=== PATIENT | female | born 1990 | race African-American/Black ===

== ENCOUNTER 2018-09-20 14:03 | Emergency (ER) | payer BC ==
[~2018-09-20] VITALS: Ht 162.6 cm; Wt 77.1 kg
[2018-09-20] MEDS ORDERED: HYDROcodone/APAP 5/325MG 1 TAB TABLET PO ONE (15:15)
--- NOTE | 2018-09-20 15:41 | RAD ---
CT HEAD WO CONTRAST History: Trauma to the head, hematoma of the forehead Comparison: None. Technique: Noncontrast CT imaging was performed of the head. Exposure: One or more of the following individualized dose reduction techniques were utilized for this examination: 1. Automated exposure control 2. Adjustment of the mA and/or kV according to patient size 3. Use of iterative reconstruction technique. Findings: No acute extra-axial or parenchymal hemorrhage is identified. There is no significant intra-axial mass effect, midline shift, or extra-axial fluid collection. The yang-white differentiation of the major vascular territories is preserved. The ventricles, sulci, and cisterns are within normal limits in size and configuration. The mastoid air cells and the visualized paranasal sinuses are aerated. No acute calvarial abnormality is identified. There is frontal scalp hematoma, no underlying fracture. Impression: 1. No acute intracranial abnormality is identified. 2. There is frontal scalp hematoma, no underlying fracture. Electronically signed by: Federico Vu MD (09/20/2018 3:38 PM) [facility]
--- NOTE | 2018-09-20 16:00 | PHYS DOC ---
Past Medical History Past Medical History: Hypertension Past Surgical History: Other Additional Past Surgical Histo: RT KNEE Additional Information: non smoker. Alcohol Use: None Drug Use: None Adult General Chief Complaint Chief Complaint: HEAD INJURY/TRAUMA HPI HPI Patient is a 28 year old female who presents after a fall. Patient has hematoma to forehead. Denies LOC, n/v, or dizziness. When she fell she hit a wooden box after tripping. Rates pain 9/10 and throbbing headache that is the worst of her life. Event happened at 10:30 this morning and headache has continued. Review of Systems Review of Systems Constitutional: Denies fever or chills [] Eyes: Denies change in visual acuity, redness, or eye pain [] HENT: Denies nasal congestion or sore throat [] Respiratory: Denies cough or shortness of breath [] Cardiovascular: No additional information not addressed in HPI [] GI: Denies abdominal pain, nausea, vomiting, bloody stools or diarrhea [] : Denies dysuria or hematuria [] Musculoskeletal: Denies back pain or joint pain [] Integument: Denies rash or skin lesions. Reports hematoma on head. Neurologic: Reports headache, denies focal weakness or sensory changes [] Endocrine: Denies polyuria or polydipsia [] Complete systems were reviewed and found to be within normal limits, except as documented in this note. Current Medications Current Medications Current Medications Medications (Trade) Dose Ordered Sig/Rhiannon Start Time Stop Time Status Last Admin Dose Admin Acetaminophen/ Hydrocodone Bitart (Lortab 5/325) 1 tab 1X ONCE 09/20/18 15:15 09/20/18 15:16 DC 09/20/18 15:11 1 TAB Allergies Allergies Allergies Coded Allergies Type Severity Reaction Last Updated Verified No Known Drug Allergies 03/23/15 No Physical Exam Physical Exam Constitutional: Well developed, well nourished, no acute distress, non-toxic appearance. [] HENT: Normocephalic, atraumatic, bilateral external ears normal, oropharynx moist, no oral exudates, nose normal. [] Eyes: PERRLA, EOMI, conjunctiva normal, no discharge. [] Neck: Normal range of motion, no tenderness, supple, no stridor. [] Cardiovascular:Heart rate regular rhythm, no murmur [] Lungs & Thorax: Bilateral breath sounds clear to auscultation [] Abdomen: Bowel sounds normal, soft, no tenderness, no masses, no pulsatile masses. [] Skin: Warm, dry, no erythema, no rash. Hematoma to forehead. Back: No tenderness, no CVA tenderness. [] Extremities: No tenderness, no cyanosis, no clubbing, ROM intact, no edema. [] Neurologic: Alert and oriented X 3, normal motor function, normal sensory function, no focal deficits noted. [] Psychologic: Affect normal, judgement normal, mood normal. [] Current Patient Data Vital Signs Vital Signs Date Time Temp Pulse Resp B/P (MAP) Pulse Ox O2 Delivery O2 Flow Rate FiO2 09/20/18 16:07 16 149/92 (111) Room Air 09/20/18 15:12 110 100 09/20/18 14:10 98.7 98.7 Lab Values Laboratory Tests Test 09/20/18 14:28 POC Urine HCG, Qualitative Hcg negative (Negative) EKG EKG [] Radiology/Procedures Radiology/Procedures []PATIENT: KARL VALENTINACCOUNT: [id number]#: [id number] : 1990 LOCATION: ER AGE: 28 SEX: F EXAM STATUS: REG ER ORD. PHYSICIAN: JAI CAMARILLO APRN REASON: trauma to head PROCEDURE: CT HEAD WO CONTRAST CT HEAD WO CONTRAST History: Trauma to the head, hematoma of the forehead Comparison: None. Technique: Noncontrast CT imaging was performed of the head. Exposure: One or more of the following individualized dose reduction techniques were utilized for this examination: 1. Automated exposure control 2. Adjustment of the mA and/or kV according to patient size 3. Use of iterative reconstruction technique. Findings: No acute extra-axial or parenchymal hemorrhage is identified. There is no significant intra-axial mass effect, midline shift, or extra-axial fluid collection. The yang-white differentiation of the major vascular territories is preserved. The ventricles, sulci, and cisterns are within normal limits in size and configuration. The mastoid air cells and the visualized paranasal sinuses are aerated. No acute calvarial abnormality is identified. There is frontal scalp hematoma, no underlying fracture. Impression: 1. No acute intracranial abnormality is identified. 2. There is frontal scalp hematoma, no underlying fracture. Electronically signed by: Federico Vu MD (09/20/2018 3:38 PM) [facility] Course & Med Decision Making Course & Med Decision Making Pertinent Labs and Imaging studies reviewed. (See chart for details) Discussed event with patient. Will order CT scan and pain medication. Patient is agreeable. Will also have her ice. Discussed results. CT scan is negative. Will send home. Patient is agreeable. Dragon Disclaimer Dragon Disclaimer This electronic medical record was generated, in whole or in part, using a voice recognition dictation system. Departure Departure Impression: Primary Impression: Head injury due to trauma Disposition: HOME, SELF-CARE Condition: STABLE Referrals: NON,STAFF (PCP) Patient Instructions: Head Injury, Adult, [id number] Additional Instructions: Use ice intermittently 20 minutes on, 20 minutes off. For pain management use Ibroprofen per label instructions. If symptoms worsen come back to ER or follow up with PCP. Problem Qualifiers Primary Impression: Head injury due to trauma Encounter type: initial encounter Qualified Codes: S09.90XA - Unspecified injury of head, initial encounter JAI CAMARILLO APRN September 20, 2018 16:00
[2018-09-20 16:07] VITALS: BP 149/92
== END 2018-09-20 16:16 | disposition home or self-care (01) ==
LOC: ER 14:03
DX: S00.83XA Contusion of other part of head, initial encounter (principal); I10 Essential (primary) hypertension; W18.09XA Striking against other object with subsequent fall, initial encounter; Y93.89 Activity, other specified; Y92.89 Other specified places as the place of occurrence of the external cause; Y99.8 Other external cause status
CPT/HCPCS: 70450; 81025; 99284